=== PATIENT | female | born 1985 | race African-American/Black ===

== ENCOUNTER 2020-03-10 15:07 | Inpatient (IN) | payer OTHER, SELFPAY ==
[2020-03-10] VITALS (7 sets, daily range): BP systolic 83–134; BP diastolic 51–86; PULSE 51–100; RESP 14–24; TEMP 36.6–37.1; O2SAT 95–100; BMI 21.1
[2020-03-10 15:50] LABS: Basophils Percent Auto 0.3 % (0.2-1.2); Eosinophils Absolute Auto 0.1 K/mm3 (0-0.3); Eosinophils Percent Auto 0.4 % (0-4.4); Hematocrit 39.2 % (37.0-47.0); Immature Granulocyte Absolute 0.06 K/mm3 (0.00-0.031); Immature Granulocyte Percent A 0.4 % (0-0.5); Lymphocytes Absolute Auto 1.89 K/mm3 (0.9-3.2); Lymphocytes Percent Auto 13.1 % (18.3-44.2); Mean Corpuscular HGB Conc 33.2 g/dl (32-36); Mean Corpuscular Hemoglobin 30.4 pg (26-34); Mean Corpuscular Volume 91.6 fl (80-100); Mean Platelet Volume 10.5 fl (7.4-10.4); Monocytes Absolute Auto 0.7 K/mm3 (0.1-0.6); Neutrophils Absolute Auto 11.6 K/mm3 (1.3-6.7); Neutrophils Percent Auto 80.8 % (45.5-73.1); Platelet Count Result 232 k/mm3 (150-375); Red Blood Count 4.28 M/mm3 (4.2-5.4); Red Cell Distribution Width 12.8 % (11.5-14.5); White Blood Count 14.4 K/mm3 (4.5-10.0)
[2020-03-10] MEDS: FAMOTIDINE 20 MG/2 ML VIAL IV PUSH ×2 (15:51→21:31)
[2020-03-10] MEDS: LACTATED RINGERS 1,000 ML 999 ML IV CONT ×3 (15:51→18:19)
[2020-03-10] MEDS: LORazepam INJ (*CRX) 2 MG/ML VIAL 0.5 MG IV PUSH (15:51)
[2020-03-10] MEDS: METOCLOPRAMIDE HCL INJ 10 MG/2 ML VIAL IV PUSH (15:51)
[2020-03-10 15:58] LABS: INR 1.1; Prothrombin Time 13.5 Seconds (11.1-14.7)
[2020-03-10 15:59] LABS: Partial Thromboplastin Time 23.4 SECONDS (22.3-36.8)
[2020-03-10 16:03] LABS: Alanine Aminotransferase 23 U/L (4-35); Albumin Level 4.8 g/dL (3.5-5.1); Alkaline Phosphatase 73 U/L (38-126); Anion Gap 9 mmol/L (8-16); Aspartate Amino Transferase 32 U/L (14-36); Bilirubin,Total 2.2 mg/dL (0.2-1.3); Blood Urea Nitrogen 14 mg/dL (7-17); CRP < 0.5 mg/dL (<1.0); Calcium 10.1 mg/dL (8.4-10.2); Carbon Dioxide 25 mmol/L (22-30); Chloride 104 mmol/L (98-107); Estimated CRCL calculation 94 ml/min; Estimated Glomerular Filt Rate > 60; Glucose 133 mg/dL (65-105); Sodium 138 mmol/L (137-145)
[2020-03-10 16:05] LABS: Add Urine Microscopic? YES; Appearance Urine Cloudy (Clear); Bacteria Urine Trace /hpf; Bilirubin Urine Negative (Negative); Blood Urine 2+ (Negative); Color Urine Yellow (Yellow); Glucose Urine UA Negative (Negative); Ketones Urine Trace mg/dL (Negative); Leukocyte Esterase Ur 2+ LEU/UL (Negative); Mucus Urine Heavy /lpf; Nitrate Urine Negative (Negative); Protein Urine 2+ mg/dL (Negative); RBC Urine 21-50 /hpf (0-2); Renal Epithelial Cells Urine Rare /hpf (None Seen); Squamous Epithelial Cell Urine Many /hpf (Few); Urobilinogen Urine Negative mg/dL (<2.0); WBC Urine 21-30 /hpf
[2020-03-10 16:07] LABS: Specific Grav Ur 1.033 (1.001-1.035)
--- NOTE | 2020-03-10 16:10 | PC.NURSE ---
unable to draw pt called lab to draw blood cultures and lactic
--- NOTE | 2020-03-10 17:47 | ED.NAVMDI ---
HPI - Nausea/Vomiting/Diarrhea General Chief complaint: Nausea/Vomiting/Diarrhea <CONY Ojeda Last Filed: 03/10/20 18:38> Stated complaint: I have a virus and need fluids <CONY Ojeda Last Filed: 03/10/20 18:38> Time Seen by Provider: 03/10/20 15:21 <CONY Ojeda Last Filed: 03/10/20 18:38> Source: patient <CONY Ojeda Last Filed: 03/10/20 18:38> Mode of arrival: ambulatory <CONY Ojeda Last Filed: 03/10/20 18:38> Limitations: no limitations <CONY Ojeda Last Filed: 03/10/20 18:38> History of Present Illness HPI Narrative: Patient is a 35-year-old female who presents with nausea and vomiting and diarrhea has been present for the last couple of days went to [facility] yesterday had evaluation to include CAT scan was sent home with instructions for gastroenteritis and placed on Flagyl patient notes she has been vomiting continually since. Patient notes some mild aching pain of the abdomen and notes that she is unable to tolerate p.o. intake. Patient denies any vaginal or urinary complaints or URI symptoms and presents then an uncomfortable state but no distress patient was prescribed Zofran which has not been helped <CONY Ojeda Last Filed: 03/10/20 18:38> Related Data Home medications: Home Medications Medication Instructions Recorded Confirmed dicyclomine mg 03/10/20 metronidazole 03/10/20 ondansetron HCl 03/10/20 <CONY Ojeda Last Filed: 03/10/20 18:38> Allergies/Adverse reactions: Allergies Allergy/AdvReac Type Severity Reaction Status Date / Time No Known Allergies Allergy Verified 03/10/20 15:13 <CONY Ojeda Last Filed: 03/10/20 18:38> Review of Systems Review of Systems: All systems reviewed & are unremarkable except as noted in HPI and below <CONY Ojeda Last Filed: 03/10/20 18:38> [facility] Social History Social History: Social History (Updated 03/10/20 @ 17:48 by Reynaldo Herrera PA-C) Smoking status: Never smoker Gender identity (if verbalized by the patient): Female <Reynaldo Herrera PA-C - Last Filed: 03/10/20 18:38> Exam Narrative: Exam Narrative: GENERAL: ill-appearing, well-nourished, and in no acute distress. HEAD: Normocephalic, atraumatic. EYES: PERRLA and EOMI. ENT: Nares clear, no rhinorrhea or epistaxis. Mucous membranes dry. CHEST: Clear to auscultation. No respiratory distress. No wheezes rales or rhonchi HEART: Regular rate and rhythm. No murmur heard. Normal peripheral pulses. ABDOMEN: Soft, mild tenderness of the abdomen without rebound or guarding, nondistended EXTREMITIES: Normal range of motion. No edema. SKIN: Warm, dry, no rash. NEURO: No focal deficits. Alert and oriented x3. PSYCH: Normal mood and affect. <Reynaldo Herrera PA-C - Last Filed: 03/10/20 18:38> Course Course Emergency Course: Patient in the room presenting septic likely secondary to dehydration received to the records from [facility] showing colitis on the scan no other findings that were concerning patient had blood work and documentation also obtained patient is resting in the room at this time is been continually hydrated will be given 3 L in the emergency department will be admitted to the hospitalist service for intractable emesis and potentially dehydration and sepsis patient has had improvement in the emergency department but continues to have nausea. Patient notes that her COVID test was negative at [place] <Reynaldo Herrera PA-C - Last Filed: 03/10/20 18:38> FORENSIC SCIENTIST/PA Physician Supervision For this patient encounter, I reviewed the FORENSIC SCIENTIST or PA documentation, treatment plan, and medical decision making; and I had [id number] time with this patient. She is resting comfortably following medications and fluids. <nAuj Lu MD - Last Filed: 03/10/20 18:59> Consultations
[2020-03-10] MEDS: PROMETHAZINE HCL 25 MG/ML AMPUL 12.5 MG IV PUSH (18:19)
[2020-03-10 19:47] LABS: Reflex Lactic Acid Yes or No Add Lactic
[2020-03-10 20:38] LABS: Lactic Acid 1.2 mmol/L (0.7-2.1)
--- NOTE | 2020-03-10 20:44 | ADMGEN ---
This patient, El Amaya, was admitted to 3 [facility] [place] Surg Room 312-01. Patient/family oriented to hospital policies and general routines including ID bracelet, bed and alarms, visiting hours, pain management, procedures, bathroom and other care routines, personal items, smoking policy, room service/diet, and visiting hours. Valuables list has been completed. Information on how to activate the Rapid Response Team has been discussed. Patient/Family are encouraged to report perceived risks to care and to ask questions if they do not understand what they are told or what they should do.
[2020-03-10] MEDS: LACTATED RINGERS 1,000 ML 125 ML IV CONT (20:57)
[2020-03-10] MEDS: ONDANSETRON INJ 4 MG/2 ML VIAL IV PUSH (21:31)
--- NOTE | 2020-03-11 01:01 | PM.IMHP ---
H&P: HPI History of Present Illness Date/Time: 03/11/20 01:01 Chief complaint: Nausea vomiting and diarrhea with abdominal pain Narrative: El Amaya is a previously healthy 35 year old female who presented to the ER due to intractable nausea, vomiting and diarrhea. The patient had been evaluated at [facility] on 03/09/2020 due to nausea vomiting and diarrhea that started around 4:00 a.m.. Her symptoms initially started with watery diarrhea was nonbloody and not have any mucus. It was shortly there after followed by onset of vomiting. At [facility] [place] she had a CT of the abdomen pelvis performed which demonstrated flores colitis. The patient received IV fluids and was discharged home with a prescription for Flagyl, oral meclizine, dicyclomine and Zofran. She also had a prescription for Phenergan suppositories however the pharmacy did not have the medication available to be filled. She returned home and continued to have nausea and vomiting. She did not take any of the medications that had been prescribed because she could not keep them down. She subsequently presented to our facility around 3:00 p.m. for repeat evaluation for repeat evaluation. The patient denied having any fevers but has been having intermittent chills. She reports that her abdominal pain is actually in the epigastric region and is worse with vomiting. Her emesis consisted of clear or yellow color emesis. She has not had any hematemesis or coffee-ground emesis. Her diarrheal stools have been brown in color. On the 1st day symptoms she had numerous watery stools. On the when she presented to the ER she only had 2 or 3 watery stools. At this time the patient is still intermittently dry heaving having small amounts of yellow emesis. She denies any recent ill contacts. She does work in catering. She has not had any recent travel. Her 2 sons who live in the home with her have not been ill. She has not had any known COVID-19 exposures. The patient's nausea vomiting persisted despite administration of IV Phenergan, Zofran, Reglan, Ativan and famotidine given in the ER. She also received 3 L of lactated Ringer's in the ER. the patient is restless and states that she just wants to be able to sleep. She is tired of feeling like she has to throw up all the time. Review of Systems Review of Systems: Narrative: 12 systems were reviewed with pertinent positives and negatives per HPI. Except as documented in the HPI, all other systems were reviewed and are negative. [facility] Past Medical History Medical History (Updated 03/11/20 @ 01:40 by Milagros Banuelos DO) No significant past medical history Surgical History Surgical History (Updated 03/11/20 @ 01:49 by Milagros Banuelos DO) History of dilation and curettage (~2012) due to miscarriage History of tympanoplasty of right ear November 2018 Family History Family History (Updated 03/11/20 @ 01:41 by Milagros Banuelos DO) Mother GERD (gastroesophageal reflux disease) Father Gunshot wound Social History Social History (Updated 03/11/20 @ 01:45 by Milagros Banuelos DO) Social History: The patient lives with her 15 and 19-year-old son. She works in [employer] Primary care physician: Dr. Minal Lima Smoking status: Never smoker Alcohol intake: never Substance use: never Substance use type: does not use Gender identity (if verbalized by the patient): Female Sexual Orientation (if Verbalized by the Patient): Straight or Heterosexual Spiritual care concerns: No Meds Home Medications and Allergies Home Medications Medication Instructions Recorded Confirmed Type dicyclomine 20 mg PO TID 03/10/20 03/10/20 History meclizine 25 mg PO TID PRN 03/10/20 03/10/20 History metronidazole 500 mg PO BID 03/10/20 03/10/20 History ondansetron HCl 4 mg PO BID 03/10/20 03/10/20 History Allergies Allergy/AdvReac Type Severity Reaction Status Date / Ti
[2020-03-11] MEDS: PROMETHAZINE HCL 25 MG/ML AMPUL IM ×2 (01:49→08:06)
[2020-03-11 06:00] VITALS: BP 121/62; PULSE 84; RESP 16; TEMP 37.3; O2SAT 100
[2020-03-11 06:11] LABS: Basophils Percent Auto 0.3 % (0.2-1.2); Eosinophils Percent Auto 0.1 % (0-4.4); Hematocrit 34.9 % (37.0-47.0); Hemoglobin 11.4 g/dL (12.0-15.0); Immature Granulocyte Absolute 0.04 K/mm3 (0.00-0.031); Immature Granulocyte Percent A 0.4 % (0-0.5); Lymphocytes Absolute Auto 2.06 K/mm3 (0.9-3.2); Lymphocytes Percent Auto 19.2 % (18.3-44.2); Mean Corpuscular HGB Conc 32.7 g/dl (32-36); Mean Corpuscular Hemoglobin 29.5 pg (26-34); Mean Corpuscular Volume 90.4 fl (80-100); Monocytes Absolute Auto 0.8 K/mm3 (0.1-0.6); Monocytes Percent Auto 7.4 % (2.6-8.5); Neutrophils Absolute Auto 7.8 K/mm3 (1.3-6.7); Neutrophils Percent Auto 72.6 % (45.5-73.1); Platelet Count Result 188 k/mm3 (150-375); Red Blood Count 3.86 M/mm3 (4.2-5.4); Red Cell Distribution Width 12.3 % (11.5-14.5); White Blood Count 10.7 K/mm3 (4.5-10.0)
[2020-03-11 06:40] LABS: Alanine Aminotransferase 20 U/L (4-35); Alkaline Phosphatase 53 U/L (38-126); Anion Gap 6 mmol/L (8-16); Aspartate Amino Transferase 25 U/L (14-36); Bilirubin,Total 1.6 mg/dL (0.2-1.3); Calcium 9.3 mg/dL (8.4-10.2); Carbon Dioxide 25 mmol/L (22-30); Chloride 105 mmol/L (98-107); Estimated Glomerular Filt Rate > 60; Glucose 104 mg/dL (65-105); Potassium 3.3 mmol/L (3.4-5.0); Sodium 136 mmol/L (137-145)
[2020-03-11 06:43] LABS: Magnesium 1.7 mg/dL (1.6-2.3)
[2020-03-11] MEDS: FAMOTIDINE 20 MG/2 ML VIAL IV PUSH ×2 (08:06→20:17)
[2020-03-11] MEDS: ENOXAPARIN 40 MG/0.4 ML SYRINGE SUB-Q (08:06)
[2020-03-11 10:00] VITALS: BP 124/85; PULSE 96; RESP 16; TEMP 36.7; O2SAT 100
--- NOTE | 2020-03-11 11:24 | WPDGICN ---
Assessment and Plan Assessment and plan (1) Intractable nausea and vomiting: Code(s): R11.2 - Nausea with vomiting, unspecified Status: Acute Assessment and Plan: continue with medical care, antiemetics and fluids cl diet for now (2) Abdominal pain: Code(s): R10.9 - Unspecified abdominal pain Status: Acute Assessment and Plan: probably gastroenteritis supportive care started on abx continue to monitor lactic acid level now normal (3) Colitis: Code(s): K52.9 - Noninfective gastroenteritis and colitis, unspecified Status: Acute Assessment and Plan: on abx, stool samples ordered (4) Dehydration: Code(s): E86.0 - Dehydration Status: Acute Assessment and Plan: improved (5) Hypokalemia: Code(s): E87.6 - Hypokalemia Status: Acute Assessment and Plan: treated (6) Bilirubinemia: Code(s): E80.6 - Other disorders of bilirubin metabolism Status: Acute Assessment and Plan: will check indirect bili, probably kishan's (noted that has been high previously) GI Consult Note Consult date/time: 03/11/20 11:24 Reason for consult: n/v, colitis HPI: El Amaya is a 35 year old female who came to the hospital with 3 days of N/V and abdominal pain. She went to [facility] on 03/09/2020 when she started having symptoms of intractable N/V, also first day had several times loose stool consistent watery diarrhea, nonbloody. They did a CT of the abdomen pelvis which showed flores colitis. Treated medically and sent home but she could not keep meds down. She is not having diarrhea now but still with N/V, also epigastric discomfort therefore she came here. No fever or sick contacts. Never had anything like this. Had WBC 14k, k 3, lactic 3 (normal now), bili 1.6 (but high previously ? Kishan) with other normal liver enzymes. She says that does not use marijuana and only tried once previously (urine tox months ago was positive). Review of Systems Constitutional: Constitutional: Reports chills and Denies headache(s) Eyes: Eyes: Denies blurry vision ENT: Reports Normal hearing present, Denies headache(s) and Denies neck pain Cardiovascular: Cardiovascular: Denies chest pain and Denies dyspnea Respiratory: Respiratory: Denies dyspnea Gastrointestinal: Gastrointestinal: Reports abdominal pain, Denies hematochezia, Reports diarrhea, Reports nausea and Reports vomiting Genitourinary: Genitourinary: Denies dysuria Musculoskeletal: Musculoskeletal: Denies neck pain Integumentary/Breasts: Skin/Breast: Denies dry skin Neurologic: Reports Normal hearing present, Denies headache(s) and Denies weakness Psychiatric: Psychiatric: Denies anxiety Endocrine: Endocrine: Denies change in body appearance Hematologic/Lymphatic: Hematologic/Lymphatic: Denies easy bleeding Allergic/Immunologic: Allergic/Immunologic: Denies urticaria PMFSH Past Medical History Medical History (Updated 03/11/20 @ 11:30 by Edison Sanchez MD) Abdominal pain Bilirubinemia No significant past medical history Surgical History Surgical History (Updated 03/11/20 @ 01:49 by Milagros Banuelos DO) History of dilation and curettage (~2012) due to miscarriage History of tympanoplasty of right ear November 2018 Family History Family History (Updated 03/11/20 @ 01:41 by Milagros Banuelos DO) Mother GERD (gastroesophageal reflux disease) Father Gunshot wound Social History Social History (Updated 03/11/20 @ 01:45 by Milagros Banuelos DO) Social History: The patient lives with her 15 and 19-year-old son. She works in catering. Primary care physician: Dr. Minal Lima Smoking status: Never smoker Alcohol intake: never Substance use: never Substance use type: does not use Gender identity (if verbalized by the patient): Female Sexual Orientation (if Verbalized by the Patient): Str
--- NOTE | 2020-03-11 11:48 | PM.IMPN ---
Progress Note: A&P Assessment and Plan (1) Colitis: Code(s): K52.9 - Noninfective gastroenteritis and colitis, unspecified Status: Acute Assessment and Plan: CT from [facility] was reviewed and demonstrated pancolitis. Either infectious or inflammatory. The patient denies any chronic abdominal pain, mucousy stools, bloody stools or evidence of history of prior inflammatory bowel symptoms, history of Crohn's, IBS or colitis. Her story is more consistent with acute infectious colitis whether viral or bacterial. Will send stool cultures, as well as C diff, Cryptosporidium and Giardia. Patient has not had any more diarrhea since prior to arrival. Will continue antibiotic therapy with Zosyn, monitoring diarrhea and abdominal symptoms. GI will be consulted for further evaluation and recommendations to if the patient continues to have issues with this she is already set up with a provider who can possibly perform further testing as outpatient (2) Lactic acidosis: Code(s): E87.2 - Acidosis Status: Acute Assessment and Plan: Patient has lactic acidosis on arrival could be secondary to acute dehydration versus underlying gastroenteritis which could be infectious. Otherwise she has remained afebrile, non tachycardic, normal blood pressure, normal oxygenation and respirations. She does leukocytosis, but this could again be secondary to nausea and vomiting and dehydration. Blood cultures are pending at this time. She is on IV antibiotics for pancolitis and gastroenteritis. Continue monitoring patient's vitals in symptoms. (3) Hypokalemia: Code(s): E87.6 - Hypokalemia Status: Acute Assessment and Plan: Potassium this morning was 3.3, but her IV potassium is still running from early this morning. Will recheck magnesium and potassium after K rider finishes to see if she needs more supplementation. Continue monitoring. (4) Dehydration: Code(s): E86.0 - Dehydration Status: Acute Assessment and Plan: Appears better hydrated after IV fluids since arrival. Will decrease her isotonic fluids to 75 cc an hour and continue monitoring her oral intake Continue monitoring. Check renal function electrolytes in the morning. (5) Intractable nausea and vomiting: Code(s): R11.2 - Nausea with vomiting, unspecified Status: Acute Assessment and Plan: Continues to have nausea when trying to eat clear liquid diet. Told her to take a time with eating and slowly advance. Continue IV Pepcid, Zofran and p.r.n. Phenergan 25 mg IM q.4 hours for intractable symptoms. Continue monitoring patient's symptoms. (6) Bilirubinemia: Code(s): E80.6 - Other disorders of bilirubin metabolism Status: Acute Assessment and Plan: She had elevated total bilirubin on arrival. It appears this has been elevated in the past during her ER/hospitalizations. GI ordered indirect bilirubin to be checked in the morning common believes could be related to Gilbert's syndrome Continue monitoring. (7) Abnormal urinalysis: Code(s): R82.90 - Unspecified abnormal findings in urine Status: Acute Assessment and Plan: Urinalysis was slightly abnormal, could be secondary to dehydration verses underlying UTI. Urine culture is currently pending. Patient is on broad-spectrum antibiotics at this time which would cover for most urinary tract infections she is to have one Will continue monitoring patient's urine symptoms and continue IV fluids at this time. Time Spent With Patient Time with patient: 25 - 35 minutes Subjec
[2020-03-11 12:09] LABS: Potassium 3.5 mmol/L (3.4-5.0)
[2020-03-11 13:05] LABS: Magnesium 1.8 mg/dL (1.6-2.3)
[2020-03-11 14:00] VITALS: BP 130/68; PULSE 50; RESP 16; TEMP 36.8; O2SAT 100
[2020-03-11 18:00] VITALS: BP 145/86; PULSE 50; RESP 16; TEMP 36.8; O2SAT 100
[2020-03-11] MEDS: LACTATED RINGERS 1,000 ML 75 ML IV CONT (20:08)
[2020-03-11] MEDS: ONDANSETRON INJ 4 MG/2 ML VIAL IV PUSH (20:12)
[2020-03-11 22:00] VITALS: BP 148/50; PULSE 48; RESP 16; TEMP 37.7; O2SAT 100
[2020-03-12 02:00] VITALS: BP 139/53; PULSE 56; RESP 16; TEMP 37.6; O2SAT 100
[2020-03-12] MEDS: ONDANSETRON INJ 4 MG/2 ML VIAL IV PUSH ×3 (03:25→17:42)
[2020-03-12 06:00] VITALS: BP 148/69; PULSE 49; RESP 16; TEMP 37.3; O2SAT 100
[2020-03-12 06:00] LABS: Hematocrit 33.8 % (37.0-47.0); Mean Corpuscular HGB Conc 32.5 g/dl (32-36); Mean Corpuscular Hemoglobin 29.9 pg (26-34); Mean Corpuscular Volume 91.8 fl (80-100); Mean Platelet Volume 11.1 fl (7.4-10.4); Platelet Count Result 179 k/mm3 (150-375); Red Blood Count 3.68 M/mm3 (4.2-5.4); Red Cell Distribution Width 12.3 % (11.5-14.5); White Blood Count 9.6 K/mm3 (4.5-10.0)
[2020-03-12 06:16] LABS: Alanine Aminotransferase 21 U/L (4-35); Albumin Level 3.6 g/dL (3.5-5.1); Alkaline Phosphatase 45 U/L (38-126); Anion Gap 6 mmol/L (8-16); Aspartate Amino Transferase 30 U/L (14-36); Bilirubin Indirect 2.3 mg/dL (0-1.1); Bilirubin,Total 2.3 mg/dL (0.2-1.3); Blood Urea Nitrogen 11 mg/dL (7-17); Carbon Dioxide 25 mmol/L (22-30); Chloride 104 mmol/L (98-107); Estimated CRCL calculation 83 ml/min; Estimated Glomerular Filt Rate > 60; Glucose 94 mg/dL (65-105); Magnesium 1.7 mg/dL (1.6-2.3); Potassium 3.3 mmol/L (3.4-5.0); Sodium 135 mmol/L (137-145)
[2020-03-12] MEDS: POTASSIUM CHLORIDE 20 MEQ TABLET 40 MEQ PO (08:48)
[2020-03-12] MEDS: FAMOTIDINE 20 MG/2 ML VIAL IV PUSH ×2 (08:49→21:26)
[2020-03-12] MEDS: ENOXAPARIN 40 MG/0.4 ML SYRINGE SUB-Q (08:49)
[2020-03-12] MEDS: LACTATED RINGERS 1,000 ML 75 ML IV CONT ×2 (09:18→21:26)
--- NOTE | 2020-03-12 10:12 | PM.IMPN ---
Progress Note: A&P Assessment and Plan (1) Colitis: Code(s): K52.9 - Noninfective gastroenteritis and colitis, unspecified Status: Acute Assessment and Plan: CT from [facility] was reviewed and demonstrated pancolitis. Either infectious or inflammatory. The patient denies any chronic abdominal pain, mucousy stools, bloody stools or evidence of history of prior inflammatory bowel symptoms, history of Crohn's, IBS or colitis. Her story is more consistent with acute infectious colitis whether viral or bacterial. Will send stool cultures, as well as C diff, Cryptosporidium and Giardia. Patient has not had any more diarrhea since prior to arrival, so stool cultures were never sent. Will continue antibiotic therapy with Zosyn, monitoring diarrhea and abdominal symptoms. GI will be consulted for further evaluation and recommendations to if the patient continues to have issues with this she is already set up with a provider who can possibly perform further testing as outpatient Continue monitoring. GI recommendations are appreciated. (2) Lactic acidosis: Code(s): E87.2 - Acidosis Status: Acute Assessment and Plan: Patient has lactic acidosis on arrival could be secondary to acute dehydration versus underlying gastroenteritis which could be infectious. Otherwise she has remained afebrile, non tachycardic, normal blood pressure, normal oxygenation and respirations. Leukocytosis normalized today. Blood cultures are negative at this time. She is on IV antibiotics for pancolitis and gastroenteritis. Continue monitoring patient's vitals in symptoms. (3) Hypokalemia: Code(s): E87.6 - Hypokalemia Status: Acute Assessment and Plan: Potassium this morning was 3.3. Will supplement. Will recheck magnesium and potassium in the morning. Continue monitoring. (4) Dehydration: Code(s): E86.0 - Dehydration Status: Acute Assessment and Plan: Appears better hydrated after IV fluids since arrival. Will decrease her isotonic fluids to 75 cc an hour and continue monitoring her oral intake Continue monitoring. Check renal function electrolytes in the morning. (5) Intractable nausea and vomiting: Code(s): R11.2 - Nausea with vomiting, unspecified Status: Acute Assessment and Plan: Continues to have nausea when trying to eat clear liquid diet. Told her to take a time with eating and slowly advance. Continue IV Pepcid, Zofran and p.r.n. Phenergan 25 mg IM q.4 hours for intractable symptoms. Continue monitoring patient's symptoms. (6) Bilirubinemia: Code(s): E80.6 - Other disorders of bilirubin metabolism Status: Acute Assessment and Plan: She had elevated total bilirubin on arrival. It appears this has been elevated in the past during her ER/hospitalizations. Normal direct bili, elevated Indirect suggesting Gilbert's syndrome Continue monitoring. (7) Abnormal urinalysis: Code(s): R82.90 - Unspecified abnormal findings in urine Status: Acute Assessment and Plan: Urinalysis was slightly abnormal, could be secondary to dehydration verses underlying UTI. Urine culture is currently pending. UA showing Group B strep. She denies any urinary symptoms at this time. Zosyn will be continued. Will continue monitoring patient's urine symptoms and continue IV fluids at this time. Time Spent With Patient Time with patient: 25 - 35 minutes Subjective Date/time seen: 03/12/20 10:12 Interval history: Date of service 03/12/2020: The patient has not been able to eat much of h
[2020-03-12 10:17] LABS: Blood Urea Nitrogen 11 mg/dL (7-17); Estimated CRCL calculation 107 ml/min
[2020-03-12 14:00] VITALS: BP 153/82; PULSE 92; RESP 18; TEMP 37.3; O2SAT 100
--- NOTE | 2020-03-12 14:27 | WPDGIPROGNO ---
Progress Note: A&P Assessment and Plan (1) Colitis: Code(s): K52.9 - Noninfective gastroenteritis and colitis, unspecified Status: Acute Assessment and Plan: pancolitis, continue with supportive care and abx wbc normal today still symptomatic stool samples pending (2) Dehydration: Code(s): E86.0 - Dehydration Status: Acute Assessment and Plan: iv fluids and supportive care (3) Hypokalemia: Code(s): E87.6 - Hypokalemia Status: Acute (4) Intractable nausea and vomiting: Code(s): R11.2 - Nausea with vomiting, unspecified Status: Acute Assessment and Plan: antiemetics prn (5) Bilirubinemia: Code(s): E80.6 - Other disorders of bilirubin metabolism Status: Acute Assessment and Plan: mostly indirect c/w Gilbert, no further work up needed Subjective Date/time seen: 03/12/20 14:27 Interval history: still nauseous and diarrhea Review of Systems Review of Systems: All systems reviewed & are unremarkable except as noted in HPI and below Exam Const: General: comfortable and no acute distress HENMT: General nose exam: Normal nares present Eyes: General: appearance normal, both eyes and all related structures Neck: Neck: no JVD Resp: Auscultation: clear to auscultation bilaterally Cardio: Rate: regular rate Rhythm: regular rhythm GI: Inspection: non-distended GI Palp: Yes Soft to palpation, No Firmness to palpation present (GI) and Yes Tenderness to palpation present (GI) (less tender today, no rebound) Auscultation: normal bowel sounds Skin: General skin exam: normal color Neuro: General: gait normal Speech: normal speech Extrem: General: normal to inspection Psych: Mental Status: mental status grossly normal Objective Data Vital Signs Vital Signs: Vital Signs - 24 hr 03/11/20 18:00 03/11/20 22:00 03/12/20 02:00 Temperature 98.3 F 99.8 F H 99.6 F Pulse Rate 50 L 48 L 56 L Respiratory Rate 16 16 16 Blood Pressure 145/86 H 148/50 H 139/53 L Pulse Oximetry 100 100 100 03/12/20 06:00 Temperature 99.2 F Pulse Rate 49 L Respiratory Rate 16 Blood Pressure 148/69 H Pulse Oximetry 100 Intake/Output Intake/Output: Intake & Output 03/09/20 03/10/20 03/11/20 03/12/20 23:59 23:59 23:59 23:59 Intake Total 3200 2340 1440 Output Total 700 700 Balance 3200 1640 740 Meds/Results Medications: Active Medications Generic Name Dose Route Start Last Admin Trade Name Freq PRN Reason Stop Dose Admin Enoxaparin Sodium 40 mg 03/11/20 09:00 03/12/20 08:49 Lovenox SUB-Q 40 mg DAILY NUHA Administration Famotidine 20 mg 03/10/20 21:00 03/12/20 08:49 Pepcid Iv IV PUSH 20 mg Q12HR NUHA Administration Piperacillin/Tazobactam/Dextrose 3.375 gm in 50 mls @ 100 mls/hr 03/11/20 00:00 03/12/20 12:45 Zosyn 3.375 Gm/D5w 50ml Pm IVPB 100 mls/hr Q6H NUHA Administration Lactated Ringer's 1,000 mls @ 75 mls/hr 03/10/20 18:40 03/12/20 09:18 Lr - Lactated Ringers Iv IV CONT 75 mls/hr .[id number] NUHA Administration Ondansetron HCl 4 mg 03/10/20 18:39 03/12/20 08:52 Zofran Inj IV PUSH 4 mg Q4H PRN Administration Nausea Promethazine HCl 25 mg 03/11/20 01:30 03/11/20 08:06 Phenergan Inj IM 25 mg Q4H PRN Administration intractable nausea/vomiting Labs Labs: Laboratory Results - last 24 hr 03/11/20 03/12/20 03/12/20 05:36 05:34 05:34 WBC 9.6 RBC 3.68 L Hgb 11.0 L Hct 33.8 L MCV 91.8 MCH 29.9 MCHC 32.5 RDW 12.3 Plt Count 179 MPV 11.1 H Sodium 135 L Potassium 3.3 L Chloride 104 Carbon Dioxide 25 Anion Gap 6 L BUN 11 11 Creatinine 0.60 L 0.80 Estim Creat Clear Calc 107 83 Estimated GFR > 60 Glucose 94 Calcium 9.0 Magnesium 1.7 Total Bilirubin 2.3 H Direct Bilirubin 0.0 Indirect Bilirubin 2.3 H AST 30 ALT 21 Alkaline Phosphatase 45 Total Pr
[2020-03-12 15:45] VITALS: TEMP 36.8
[2020-03-12 22:00] VITALS: BP 129/81; PULSE 47; RESP 16; TEMP 37.4; O2SAT 100
[2020-03-13 06:00] VITALS: BP 117/51; PULSE 49; RESP 16; O2SAT 100
[2020-03-13 06:10] LABS: Hematocrit 34.5 % (37.0-47.0); Hemoglobin 11.3 g/dL (12.0-15.0); Mean Corpuscular HGB Conc 32.8 g/dl (32-36); Mean Corpuscular Hemoglobin 29.2 pg (26-34); Mean Corpuscular Volume 89.1 fl (80-100); Mean Platelet Volume 10.9 fl (7.4-10.4); Platelet Count Result 191 k/mm3 (150-375); Red Blood Count 3.87 M/mm3 (4.2-5.4); White Blood Count 8.5 K/mm3 (4.5-10.0)
[2020-03-13 06:23] LABS: Anion Gap 7 mmol/L (8-16); Blood Urea Nitrogen 9 mg/dL (7-17); Carbon Dioxide 24 mmol/L (22-30); Chloride 105 mmol/L (98-107); Estimated CRCL calculation 83 ml/min; Estimated Glomerular Filt Rate > 60; Glucose 89 mg/dL (65-105); Potassium 3.5 mmol/L (3.4-5.0); Sodium 136 mmol/L (137-145)
[2020-03-13] MEDS: FAMOTIDINE 20 MG/2 ML VIAL IV PUSH ×2 (08:14→20:20)
[2020-03-13] MEDS: ENOXAPARIN 40 MG/0.4 ML SYRINGE SUB-Q (08:14)
[2020-03-13] MEDS: PROMETHAZINE HCL 25 MG/ML AMPUL IM (09:05)
[2020-03-13 10:41] VITALS: BP 130/66; PULSE 51; RESP 20; TEMP 36.8; O2SAT 100
--- NOTE | 2020-03-13 11:18 | PC.NURSE ---
904 pt requetsed phenergan states she attempted to drink some juice and is now has nausea and had emesis.phergan 12.5mg iv per dose instructions given.
--- NOTE | 2020-03-13 12:32 | PM.IMPN ---
Progress Note: A&P Assessment and Plan (1) Colitis: Code(s): K52.9 - Noninfective gastroenteritis and colitis, unspecified Status: Acute Assessment and Plan: CT from [facility] demonstrated pancolitis. Differential includes infectious vs inflammatory etiology. The pt denies any chronic abdominal pain, mucous stools, bloody stools or evidence of history of prior inflammatory bowel symptoms, history of Crohn's, IBS or colitis. Will check ESR and CRP. Clinical presentation suggests acute infectious colitis. Stool cultures were ordered but could not be performed because she did not have any further bowel movements. She reports one episode of diarrhea yesterday. Will try to order stool cultures again. Continue empiric IV zosyn. GI was consulted and input is appreciated. Continue supportive care and advance diet as tolerated. Discussed with GI and will plan for EGD tomorrow given epigastric tenderness and inability to tolerate PO intake. (2) Lactic acidosis: Code(s): E87.2 - Acidosis Status: Resolved Assessment and Plan: Lactic acidosis was present on arrival and may have been secondary to acute dehydration versus colitis. Lactic acidosis and leukocytosis have resolved. She remains on treatment for colitis. (3) Hypokalemia: Code(s): E87.6 - Hypokalemia Status: Resolved Assessment and Plan: Potassium was low and supplemented. Potassium and magnesium have normalized. Continue to monitor. (4) Dehydration: Code(s): E86.0 - Dehydration Status: Acute Assessment and Plan: Appears better hydrated after IV fluids since arrival. Continue IV fluids since PO intake is poor. Switch to D5/0.45% saline since blood sugars are on the low end of normal. (5) Intractable nausea and vomiting: Code(s): R11.2 - Nausea with vomiting, unspecified Status: Acute Assessment and Plan: Pt reports persistent nausea and cannot tolerate PO intake. Continue IV Pepcid, Zofran and p.r.n. Phenergan 25 mg IM q.4 hours for intractable symptoms. Appreciate GI input. (6) Bilirubinemia: Code(s): E80.6 - Other disorders of bilirubin metabolism Status: Acute Assessment and Plan: Total and indirect bilirubin are elevated suggesting Gilbert's syndrome. Direct bilirubin is 0. Appreciate GI input. (7) Abnormal urinalysis: Code(s): R82.90 - Unspecified abnormal findings in urine Status: Acute Assessment and Plan: Urine culture demonstrated Group B strep. She is asymptomatic. Zosyn will be continued for empiric treatment of colitis. (8) Hypoglycemia: Code(s): E16.2 - Hypoglycemia, unspecified Status: Acute Assessment and Plan: She reported tingling in her hands and feet with lightheadedness. Blood sugar was low at 76. I have added hypoglycemia protocol and q6 hr glucose monitoring since her PO intake is very poor. I will also order vitamin B12, folate, and vitamin D levels as well but I suspect that this is due to hypoglycemia. Subjective Date/time seen: 03/13/20 12:32 Mrs. Amaya is a 35 y.o. female who is seen in follow-up for pancolitis. She reports one loose stool yesterday. She is still nauseous and unable to keep anything PO down. She denies abdominal pain. She reports some lightheadedness and numbness/tingling in her hands and feet and blood sugar was found to be low. Review of Systems Review of Systems: All systems reviewed & are unremarkable except as noted in HPI and below Exam Narrative: Exam Narrative: General: Pleasant, well-developed, thin 35 y.o. female lying supine in bed in no acute distress. HEENET: Normocephalic and atraumatic. Conjunctivae without injection or exudate. PERRL. EOMI. Oral mucosa moist. Neck: Supple without lymphadenopathy or masses. Cardiac: Regular rate and rhythm. S1 and S2 normal. Lungs: Lungs clear to auscultati
[2020-03-13] MEDS: DEXTROSE 5%/0.9% SOD CHL 1,000 ML 75 ML IV CONT (13:02)
[2020-03-13 14:00] VITALS: BP 159/79; PULSE 60; RESP 20; TEMP 36.9; O2SAT 100
--- NOTE | 2020-03-13 15:34 | WPDGIPROGNO ---
Progress Note: A&P Assessment and Plan (1) Intractable nausea and vomiting: Code(s): R11.2 - Nausea with vomiting, unspecified Status: Acute Assessment and Plan: antiemetics prn will assess with egd, assess for ulcers, esophagitis, etc consider bx (2) Colitis: Code(s): K52.9 - Noninfective gastroenteritis and colitis, unspecified Status: Acute Assessment and Plan: pancolitis, continue with supportive care and abx leukocytosis resolved but still symptomatic stool samples pending (3) Dehydration: Code(s): E86.0 - Dehydration Status: Acute Assessment and Plan: iv fluids and supportive care (4) Hypokalemia: Code(s): E87.6 - Hypokalemia Status: Resolved Assessment and Plan: monitor and replacement (5) Bilirubinemia: Code(s): E80.6 - Other disorders of bilirubin metabolism Status: Acute Assessment and Plan: mostly indirect c/w Gilbert, no further work up needed Subjective Date/time seen: 03/13/20 15:34 Interval history: still with nausea, epigastric pain and diarrhea. Review of Systems Review of Systems: All systems reviewed & are unremarkable except as noted in HPI and below Exam Const: General: comfortable and no acute distress HENMT: General nose exam: Normal nares present Eyes: General: appearance normal, both eyes and all related structures Neck: Neck: no JVD Resp: Auscultation: clear to auscultation bilaterally Cardio: Rate: regular rate Rhythm: regular rhythm GI: Inspection: non-distended GI Palp: Yes Soft to palpation, No Firmness to palpation present (GI) and Yes Tenderness to palpation present (GI) (excelsior machine tender in epigastric, no rebound) Auscultation: normal bowel sounds Skin: General skin exam: normal color Neuro: General: gait normal Speech: normal speech Extrem: General: normal to inspection Psych: Mental Status: mental status grossly normal Objective Data Vital Signs Vital Signs: Vital Signs - 24 hr 03/12/20 15:45 03/12/20 22:00 03/13/20 06:00 Temperature 98.3 F 99.3 F Pulse Rate 47 L 49 L Respiratory Rate 16 16 Blood Pressure 129/81 117/51 L Pulse Oximetry 100 100 03/13/20 10:41 Temperature 98.2 F Pulse Rate 51 L Respiratory Rate 20 Blood Pressure 130/66 Pulse Oximetry 100 Intake/Output Intake/Output: Intake & Output 03/10/20 03/11/20 03/12/20 03/13/20 23:59 23:59 23:59 23:59 Intake Total 3200 2340 3410 841 Output Total 700 1700 700 Balance 3200 1640 1710 141 Meds/Results Medications: Active Medications Generic Name Dose Route Start Last Admin Trade Name Freq PRN Reason Stop Dose Admin Dextrose 12.5 gm 03/13/20 12:31 Dextrose 50% Syringe IV PUSH PRN PRN Hypoglycemia Protocol Enoxaparin Sodium 40 mg 03/11/20 09:00 03/13/20 08:14 Lovenox SUB-Q 40 mg DAILY NUHA Administration Famotidine 20 mg 03/10/20 21:00 03/13/20 08:14 Pepcid Iv IV PUSH 20 mg Q12HR NUHA Administration Glucagon 1 mg 03/13/20 12:31 Glucagon For Inj IM PRN PRN Hypoglycemia Protocol Glucose 15 gm 03/13/20 12:31 Glutose 15 PO PRN PRN Hypoglycemia Protocol Piperacillin/Tazobactam/Dextrose 3.375 gm in 50 mls @ 100 mls/hr 03/11/20 00:00 03/13/20 12:25 Zosyn 3.375 Gm/D5w 50ml Pm IVPB 100 mls/hr Q6H NUHA Infusion Dextrose 1,000 mls @ 100 mls/hr 03/13/20 12:31 Dextrose 5% 1,000 Ml IVPB PRN PRN Hypoglycemia Protocol Dextrose/Sodium Chloride 1,000 mls @ 75 mls/hr 03/13/20 12:45 03/13/20 13:02 Dextrose 5% Sodium Chloride 0.9% IV CONT 75 mls/hr .[id number] NUHA Administration Ondansetron HCl 4 mg 03/10/20 18:39 03/12/20 17:42 Zofran Inj IV PUSH 4 mg Q4H PRN Administration Nausea Promethazine HCl 25 mg 03/11/20 01:30 03/13/20 09:05 Phenergan Inj IM 12.5 mg Q4H PRN Administration intractable nausea/vomiting Labs Labs: Leticia
[2020-03-13 22:00] VITALS: BP 133/70; PULSE 49; RESP 16; TEMP 37.6; O2SAT 100
[2020-03-13] MEDS: ONDANSETRON INJ 4 MG/2 ML VIAL IV PUSH (23:57)
[2020-03-14] VITALS (9 sets, daily range): BP systolic 98–144; BP diastolic 50–75; PULSE 45–54; RESP 16–24; TEMP 36.6–37.5; O2SAT 100
[2020-03-14] MEDS: PROMETHAZINE HCL 25 MG/ML AMPUL IM (00:15)
[2020-03-14 02:25] LABS: Glucose Point of Care 107 (65-105)
[2020-03-14] MEDS: DEXTROSE 5%/0.9% SOD CHL 1,000 ML 75 ML IV CONT (04:12)
[2020-03-14 05:35] LABS: Basophils Percent Auto 0.6 % (0.2-1.2); Eosinophils Absolute Auto 0.2 K/mm3 (0-0.3); Eosinophils Percent Auto 2.3 % (0-4.4); Hematocrit 36.1 % (37.0-47.0); Hemoglobin 11.9 g/dL (12.0-15.0); Immature Granulocyte Absolute 0.04 K/mm3 (0.00-0.031); Immature Granulocyte Percent A 0.6 % (0-0.5); Lymphocytes Absolute Auto 2.24 K/mm3 (0.9-3.2); Lymphocytes Percent Auto 32.7 % (18.3-44.2); Mean Corpuscular Hemoglobin 29.9 pg (26-34); Mean Corpuscular Volume 90.7 fl (80-100); Mean Platelet Volume 10.6 fl (7.4-10.4); Monocytes Absolute Auto 0.5 K/mm3 (0.1-0.6); Monocytes Percent Auto 7.7 % (2.6-8.5); Neutrophils Absolute Auto 3.9 K/mm3 (1.3-6.7); Neutrophils Percent Auto 56.1 % (45.5-73.1); Platelet Count Result 191 k/mm3 (150-375); Red Blood Count 3.98 M/mm3 (4.2-5.4); Red Cell Distribution Width 11.9 % (11.5-14.5); White Blood Count 6.9 K/mm3 (4.5-10.0)
[2020-03-14 05:53] LABS: Anion Gap 5 mmol/L (8-16); Blood Urea Nitrogen 8 mg/dL (7-17); CRP < 0.5 mg/dL (<1.0); Carbon Dioxide 25 mmol/L (22-30); Chloride 106 mmol/L (98-107); Estimated CRCL calculation 83 ml/min; Estimated Glomerular Filt Rate > 60; Glucose 101 mg/dL (65-105); Potassium 3.3 mmol/L (3.4-5.0); Sodium 136 mmol/L (137-145)
[2020-03-14 06:25] LABS: Erythrocyte Sedimentation Rate 15 mm/hr (0-20)
[2020-03-14 08:01] LABS: Folic Acid 13.6 ng/mL (2.76->20)
[2020-03-14 08:23] LABS: Glucose Point of Care 96 (65-105)
[2020-03-14] MEDS: LACTATED RINGERS 1,000 ML 150 ML IV CONT (08:53)
--- NOTE | 2020-03-14 08:59 | WPDANESEPPF ---
Anes - Initial Pre Proc Eval Procedure: Operation Date: 03/14/20 09:30 Proposed Procedures p Esophagogastroduodenoscopy - Edison Sanchez MD Date/Time: 03/14/20 08:59 Surgeon: Suzanne Kelley PA-C Pre Op Diagnosis: Nausea vomiting and diarrhea with abdominal pain Patient Data Age: 35 Gender: F Height: 5 ft 7 in Weight: 61.2 kg Last Vital Signs Temp 98.6 F 03/14/20 08:56 Pulse 46 L 03/14/20 08:56 Resp 20 03/14/20 08:56 BP 124/69 03/14/20 08:56 Pulse Ox 100 03/14/20 08:56 Allergies Allergy/AdvReac Type Severity Reaction Status Date / Time No Known Allergies Allergy Verified 03/10/20 15:13 Home Medications Medication Instructions Recorded Confirmed Type dicyclomine 20 mg PO TID 03/10/20 03/10/20 History meclizine 25 mg PO TID PRN 03/10/20 03/10/20 History metronidazole 500 mg PO BID 03/10/20 03/10/20 History ondansetron HCl 4 mg PO BID 03/10/20 03/10/20 History Laboratory Tests 03/14/20 03/14/20 03/14/20 01:02 05:20 05:20 WBC 6.9 K/mm3 K/mm3 (4.5-10.0) RBC 3.98 M/mm3 L M/mm3 (4.2-5.4) Hgb 11.9 g/dL L g/dL (12.0-15.0) Hct 36.1 % L % (37.0-47.0) MCV 90.7 fl fl (80-100) MCH 29.9 pg pg (26-34) MCHC 33.0 g/dl g/dl (32-36) RDW 11.9 % % (11.5-14.5) Plt Count 191 k/mm3 k/mm3 (150-375) MPV 10.6 fl H fl (7.4-10.4) Immature Gran % (Auto) 0.6 % H % (0-0.5) Neut % (Auto) 56.1 % % (45.5-73.1) Lymph % (Auto) 32.7 % % (18.3-44.2) [place] % (Auto) 7.7 % % (2.6-8.5) Eos % (Auto) 2.3 % % (0-4.4) Baso % (Auto) 0.6 % % (0.2-1.2) Lymph # (Auto) 2.24 K/mm3 K/mm3 (0.9-3.2) [place] # (Auto) 0.5 K/mm3 K/mm3 (0.1-0.6) Eos # (Auto) 0.2 K/mm3 K/mm3 (0-0.3) Baso # (Auto) 0.0 K/mm3 K/mm3 (0.0-0.1) Abs Immat Gran (auto) 0.04 K/mm3 H K/mm3 (0.00-0.031) Absolute Neuts (auto) 3.9 K/mm3 K/mm3 (1.3-6.7) Absolute Nucleated RBC 0.0 K/mm3 K/mm3 (0.0-0.012) Nucleated RBC % 0.0 % % (0.0-0.2) ESR 15 mm/hr mm/hr (0-20) Sodium 136 mmol/L L mmol/L (137-145) Potassium 3.3 mmol/L L mmol/L (3.4-5.0) Chloride 106 mmol/L mmol/L (98-107) Carbon Dioxide 25 mmol/L mmol/L (22-30) Anion Gap 5 mmol/L L mmol/L (8-16) BUN 8 mg/dL mg/dL (7-17) Creatinine 0.80 mg/dL mg/dL (0.7-1.0) Estim Creat Clear Calc 83 ml/min ml/min Estimated GFR > 60 (59 - ) Glucose 101 mg/dL mg/dL (65-105) POC Capillary Glucose 107 mg/dl mg/dl (65-105) Calcium 9.0 mg/dL mg/dL (8.4-10.2) C-Reactive Protein < 0.5 mg/dL mg/dL (<1.0) Vitamin B12 Pending Folate 13.6 ng/mL ng/mL (2.76->20) 03/14/20 05:46 WBC RBC Hgb Hct MCV MCH MCHC RDW Plt Count MPV Immature Gran % (Auto) Neut % (Auto) Lymph % (Auto) [place] % (Auto) Eos % (Auto) Baso % (Auto) Lymph # (Auto) [place] # (Auto) Eos # (Auto) Baso # (Auto) Abs Immat Gran (auto) Absolute Neuts (auto) Absolute Nucleated RBC Nucleated RBC % ESR Sodium Potassium Chloride Carbon Dioxide Anion Gap BUN Creatinine Estim Creat Clear Calc Estimated GFR Glucose POC Capillary Glucose 96 mg/dl mg/dl (65-105) Calcium C-Reactive Protein Vitamin B12 Folate Patient hx anesthesia problems: none Family hx anesthesia problems: none [facility] Past Medical History Medical History (Updated 03/13/20 @ 12:51 by Suzanne Kelley PA-C) Abdominal pain Bilirubinemia No significant past medical history
--- NOTE | 2020-03-14 10:32 | PM.IMPN ---
Progress Note: A&P Assessment and Plan (1) Colitis: Code(s): K52.9 - Noninfective gastroenteritis and colitis, unspecified Status: Acute Assessment and Plan: CT from [facility] demonstrated pancolitis. Differential includes infectious vs inflammatory etiology. The pt denies any chronic abdominal pain, mucous stools, bloody stools or evidence of history of prior inflammatory bowel symptoms, history of Crohn's, IBS or colitis. CRP and ESR are normal so IBD is felt less likely. Clinical presentation suggests acute infectious colitis. Stool cultures were ordered but could not be performed because she did not have any further bowel movements. She reports one episode of diarrhea yesterday. Repeat stool cultures were ordered and are pending. Continue empiric IV zosyn. GI was consulted and input is appreciated. She underwent EGD today given epigastric pain, nausea, and vomiting and EGD was unremarkable. Continue supportive care and advance diet as tolerated. Appreciate continued GI input. (2) Lactic acidosis: Code(s): E87.2 - Acidosis Status: Resolved Assessment and Plan: Lactic acidosis was present on arrival and may have been secondary to acute dehydration versus colitis. Lactic acidosis and leukocytosis have resolved. She remains on treatment for colitis. (3) Hypokalemia: Code(s): E87.6 - Hypokalemia Status: Acute Assessment and Plan: Potassium is 3.3 today. Give 40mEq of PO potassium and repeat BMP tomorrow. (4) Dehydration: Code(s): E86.0 - Dehydration Status: Acute Assessment and Plan: Appears better hydrated after IV fluids since arrival. Continue IV fluids with D5/0.9% saline since PO intake is poor. (5) Intractable nausea and vomiting: Code(s): R11.2 - Nausea with vomiting, unspecified Status: Acute Assessment and Plan: Pt reported nausea and vomiting. She was NPO since midnight for EGD. She reports no further episodes today. Continue IV Pepcid, Zofran and p.r.n. Phenergan 25 mg IM q 4 hours for intractable symptoms. I have encouraged her to try to advance diet as tolerated. Appreciate GI input. (6) Bilirubinemia: Code(s): E80.6 - Other disorders of bilirubin metabolism Status: Acute Assessment and Plan: Total and indirect bilirubin are elevated suggesting Gilbert's syndrome. Direct bilirubin is 0. Appreciate GI input. (7) Abnormal urinalysis: Code(s): R82.90 - Unspecified abnormal findings in urine Status: Acute Assessment and Plan: Urine culture demonstrated Group B strep. She is asymptomatic. Zosyn will be continued for empiric treatment of colitis. (8) Hypoglycemia: Code(s): E16.2 - Hypoglycemia, unspecified Status: Acute Assessment and Plan: She reported tingling in her hands and feet with lightheadedness. Blood sugar was low at 76. Symptoms resolved with correction of hypoglycemia. Folate, vitamin B12, and vitamin D were sufficient. Subjective Date/time seen: 03/14/20 10:32 Mrs. Amaya is a 35 y.o. female who is seen in follow-up for pancolitis. She reports that she is feeling better today. She notes mild drowsiness as she just returned from EGD. She notes a migraine overnight which has resolved. She reports nausea and dry heaves yesterday but no further nausea or vomiting today. She would like to try to advance her diet today. She denies chest pain, dyspnea, cough. She denies abdominal pain. She reports loose stool. She denies subjective fever and chills. She denies dizziness, lightheadedness, and headache. She reports that her numbness/tingling resolved with correction of hypoglycemia and has not recurred. Review of Systems Review of Systems: All systems reviewed & are unremarkable except as noted in HPI and below Exam Narrative: Exam Narrative: General: Very pleasant, well-developed, thin 35 y.
[2020-03-14] MEDS: ENOXAPARIN 40 MG/0.4 ML SYRINGE SUB-Q (11:19)
--- NOTE | 2020-03-14 11:52 | PC.NURSE ---
1028 pt returned from GI lab alert , no distress, with no iv access , hospital iv nurse notified, she will come to start new iv pt is a difficult stick.
[2020-03-14 12:32] LABS: Glucose Point of Care 78 (65-105)
[2020-03-14] MEDS: POTASSIUM CHLORIDE 20 MEQ TABLET 40 MEQ PO (13:32)
[2020-03-14] MEDS: FAMOTIDINE 20 MG/2 ML VIAL IV PUSH ×2 (13:32→20:43)
--- NOTE | 2020-03-14 15:22 | PC.NURSE ---
1300 witnessed pt leaning over waste can trying to throw up , saliva was all that was witnessed , pt stated it was her few bites of food , no food noted in waste can. pt was able to dissolve potassium pills in sprite and drink them and kept them down, after explaining it would have to be given iv and could burn and possibly risk the new iv she had received today.
--- NOTE | 2020-03-14 18:52 | PC.NURSE ---
1850 pt c/o headache and requesting something for it , also iv is a 24 g and has started beeping, rate is 75 so turned down to 50 and called jessica to inform of iv difficulty it is patent but tolerating the rate of 75 and requested po med for headache, message left.
[2020-03-15 06:00] VITALS: BP 98/53; PULSE 49; RESP 20; TEMP 36.6; O2SAT 100
[2020-03-15 06:04] LABS: Hemoglobin 12.2 g/dL (12.0-15.0); Mean Corpuscular Hemoglobin 30.1 pg (26-34); Mean Corpuscular Volume 91.4 fl (80-100); Mean Platelet Volume 10.6 fl (7.4-10.4); Platelet Count Result 191 k/mm3 (150-375); Red Blood Count 4.05 M/mm3 (4.2-5.4); Red Cell Distribution Width 12.3 % (11.5-14.5)
[2020-03-15 06:20] LABS: Anion Gap 7 mmol/L (8-16); Blood Urea Nitrogen 7 mg/dL (7-17); Carbon Dioxide 24 mmol/L (22-30); Chloride 106 mmol/L (98-107); Estimated CRCL calculation 83 ml/min; Estimated Glomerular Filt Rate > 60; Glucose 93 mg/dL (65-105); Potassium 3.5 mmol/L (3.4-5.0); Sodium 137 mmol/L (137-145)
--- NOTE | 2020-03-15 07:26 | WPDANESPN ---
Anes - Prog Note Post-Op Date/Time: 03/15/20 07:26 Cardiovascular status: normal Respiratory status: normal Airway patency: baseline Mental status: baseline Post-Op hydration status: normal Vital Signs: Last Vital Signs Temp 36.6 C 03/15/20 06:00 Pulse 49 L 03/15/20 06:00 Resp 20 03/15/20 06:00 BP 98/53 L 03/15/20 06:00 Pulse Ox 100 03/15/20 06:00 Pain Score (VAS): 1 I/O: Intake & Output 03/14/20 03/14/20 03/15/20 15:59 23:59 07:59 Intake Total 540 680 250 Output Total 100 Balance 540 580 250 Laboratory Tests 03/15/20 05:46 03/15/20 05:46 03/14/20 03/14/20 03/14/20 05:20 05:46 12:29 WBC RBC Hgb Hct MCV MCH MCHC RDW Plt Count MPV Sodium Potassium Chloride Carbon Dioxide Anion Gap BUN Creatinine Estim Creat Clear Calc Estimated GFR Glucose POC Capillary Glucose 96 78 Calcium Vitamin B12 530.0 Folate 13.6 03/15/20 03/15/20 05:46 05:46 WBC 8.0 RBC 4.05 L Hgb 12.2 Hct 37.0 MCV 91.4 MCH 30.1 MCHC 33.0 RDW 12.3 Plt Count 191 MPV 10.6 H Sodium 137 Potassium 3.5 Chloride 106 Carbon Dioxide 24 Anion Gap 7 L BUN 7 Creatinine 0.80 Estim Creat Clear Calc 83 Estimated GFR > 60 Glucose 93 POC Capillary Glucose Calcium 9.0 Vitamin B12 Folate Microbiology 03/12/20 17:03 Stool Stool for WBCs - Final 03/12/20 12:54 Stool Clostridioides difficile Toxin Assay - Final Patient Feedback: Patient satisfied with anesthetic care.
[2020-03-15] MEDS: ONDANSETRON INJ 4 MG/2 ML VIAL IV PUSH (08:44)
[2020-03-15] MEDS: FAMOTIDINE 20 MG/2 ML VIAL IV PUSH (08:44)
[2020-03-15] MEDS: ENOXAPARIN 40 MG/0.4 ML SYRINGE SUB-Q (08:47)
--- NOTE | 2020-03-15 11:30 | WPDGIPROGNO ---
Progress Note: A&P Assessment and Plan (1) Intractable nausea and vomiting: Code(s): R11.2 - Nausea with vomiting, unspecified Status: Acute Assessment and Plan: still with n/v, encourage to eat but still sick egd normal, pending biopsies will schedule zofran instead of prn and add elavil at bedtime probably from pancolitis (found CT scan at another hospital) normal esr, also liver enzymes and lipase (2) Colitis: Code(s): K52.9 - Noninfective gastroenteritis and colitis, unspecified Status: Acute Assessment and Plan: she is on abx, stool samples pending wbc stool and c diff negative (3) Dehydration: Code(s): E86.0 - Dehydration Status: Acute (4) Abdominal pain: Code(s): R10.9 - Unspecified abdominal pain Status: Acute Assessment and Plan: resolved but still nauseous, wbc and lactic acid normal now. Subjective Date/time seen: 03/15/20 11:30 Interval history: still with nausea, she says that less diarrhea. No more pain though. EGD was normal yesterday. Review of Systems Review of Systems: All systems reviewed & are unremarkable except as noted in HPI and below Exam Const: General: comfortable and no acute distress HENMT: General nose exam: Normal nares present Eyes: General: appearance normal, both eyes and all related structures Neck: Neck: no JVD Resp: Auscultation: clear to auscultation bilaterally Cardio: Rate: regular rate Rhythm: regular rhythm GI: Inspection: non-distended GI Palp: Yes Soft to palpation Skin: General skin exam: normal color Neuro: General: gait normal Speech: normal speech Extrem: General: normal to inspection Psych: Mental Status: mental status grossly normal Objective Data Vital Signs Vital Signs: Vital Signs - 24 hr 03/14/20 14:00 03/14/20 20:18 03/14/20 22:00 Temperature 99.5 F 97.9 F 98.9 F Pulse Rate 49 L 46 L 54 L Respiratory Rate 16 20 Blood Pressure 118/75 144/72 H 136/50 L Pulse Oximetry 100 100 100 03/15/20 06:00 Temperature 97.8 F Pulse Rate 49 L Respiratory Rate 20 Blood Pressure 98/53 L Pulse Oximetry 100 Intake/Output Intake/Output: Intake & Output 09/03/13/20 03/14/20 03/15/20 23:59 23:59 23:59 23:59 Intake Total 3410 1391 2420 300 Output Total 1700 1000 800 Balance 0714 773 6107 300 Meds/Results Medications: Active Medications Generic Name Dose Route Start Last Admin Trade Name Freq PRN Reason Stop Dose Admin Acetaminophen 650 mg 03/15/20 11:22 Tylenol Tablet PO Q6H PRN Mild Pain (1-3) or Fever Amitriptyline HCl 25 mg 03/15/20 21:00 Elavil PO HS NUHA Dextrose 12.5 gm 03/13/20 12:31 Dextrose 50% Syringe IV PUSH PRN PRN Hypoglycemia Protocol Dicyclomine HCl 20 mg 03/15/20 13:00 Bentyl Capsule PO TID NUHA Enoxaparin Sodium 40 mg 03/11/20 09:00 03/15/20 08:47 Lovenox SUB-Q 40 mg DAILY NUHA Administration Glucagon 1 mg 03/13/20 12:31 Glucagon For Inj IM PRN PRN Hypoglycemia Protocol Glucose 15 gm 03/13/20 12:31 Glutose 15 PO PRN PRN Hypoglycemia Protocol Piperacillin/Tazobactam/Dextrose 3.375 gm in 50 mls @ 100 mls/hr 03/11/20 00:00 03/15/20 10:25 Zosyn 3.375 Gm/D5w 50ml Pm IVPB Infused Q6H NUHA Infusion Dextrose 1,000 mls @ 100 mls/hr 03/13/20 12:31 Dextrose 5% 1,000 Ml IVPB PRN PRN Hypoglycemia Protocol Dextrose/Sodium Chloride 1,000 mls @ 75 mls/hr 03/13/20 12:45 03/14/20 04:12 Dextrose 5% Sodium Chloride 0.9% IV CONT 75 mls/hr .[id number] NUHA Administration Meclizine HCl 25 mg 03/15/20 11:21 Antivert PO TID PRN dizziness Ondansetron HCl 4 mg 03/15/20 13:00 Zofran Inj IV PUSH Q4HR NUHA Pantoprazole Sodium 40 mg 03/16/20 09:00 Protonix PO QAM [facility] Labs Labs: Laboratory Results - last 24 hr 03/14/20 03/15/20 03/15/20 12:29 05:46
[2020-03-15 14:00] VITALS: BP 105/66; PULSE 51; RESP 14; TEMP 37.3; O2SAT 100
--- NOTE | 2020-03-15 14:43 | PM.IMPN ---
Progress Note: A&P Assessment and Plan (1) Colitis: Code(s): K52.9 - Noninfective gastroenteritis and colitis, unspecified Status: Acute Assessment and Plan: CT from [facility] demonstrated pancolitis. Differential includes infectious vs inflammatory etiology. The pt denies any chronic abdominal pain, mucous stools, bloody stools or evidence of history of prior inflammatory bowel symptoms, history of Crohn's, IBS or colitis. CRP and ESR are normal so IBD is felt less likely. Clinical presentation suggests acute infectious colitis. Stool cultures were repeated as the prior specimen was not fully resulted. C. diff is negative. Giardia and cryptosporidium are negative. Shiga toxins, campylobacter, and salmonella/shigella are pending. WBC smear is negative. Diarrhea has resolved. GI is following. She underwent EGD 03/14 given epigastric pain, nausea, and vomiting and EGD was unremarkable. Continue supportive care and advance diet as tolerated. Appreciate continued GI input. Discussed with GI and will stop IV zosyn as this may be contributing to her nausea/vomiting. Colitis has been adequately treated and stool study negative for WBCs. (2) Intractable nausea and vomiting: Code(s): R11.2 - Nausea with vomiting, unspecified Status: Acute Assessment and Plan: Pt reports nausea and vomiting. Will stop pepcid and begin PO protonix. Discussed with GI and will start amitriptyline at bedtime and schedule zofran. I have also resumed her bentyl. Stop IV zosyn as this may be contributing to N/V. Appreciate GI input. (3) Lactic acidosis: Code(s): E87.2 - Acidosis Status: Resolved Assessment and Plan: Resolved. Lactic acidosis was present on arrival and may have been secondary to acute dehydration versus colitis. Lactic acidosis and leukocytosis have resolved. She remains on treatment for colitis. (4) Hypokalemia: Code(s): E87.6 - Hypokalemia Status: Resolved Assessment and Plan: Potassium is sufficient. (5) Dehydration: Code(s): E86.0 - Dehydration Status: Acute Assessment and Plan: Appears better hydrated after IV fluids since arrival. Continue IV fluids with D5/0.9% saline since PO intake is poor. (6) Bilirubinemia: Code(s): E80.6 - Other disorders of bilirubin metabolism Status: Acute Assessment and Plan: Total and indirect bilirubin are elevated suggesting Gilbert's syndrome. Direct bilirubin is 0. Appreciate GI input. (7) Abnormal urinalysis: Code(s): R82.90 - Unspecified abnormal findings in urine Status: Acute Assessment and Plan: Urine culture demonstrated Group B strep. She is asymptomatic. Zosyn will be continued for empiric treatment of colitis. (8) Hypoglycemia: Code(s): E16.2 - Hypoglycemia, unspecified Status: Acute Assessment and Plan: Resolved. She reported tingling in her hands and feet with lightheadedness. Blood sugar was low at 76. Symptoms resolved with correction of hypoglycemia. Folate, vitamin B12, and vitamin D were sufficient. Subjective Date/time seen: 03/15/20 14:43 Mrs. Amaya is a 35 y.o. female who is seen in follow-up for pancolitis. The patient reports that she was feeling better yesterday but states that she had nausea and vomiting today after water and crackers. I looked in the emesis bag and all that was in it was clear fluid which looked like saliva. EGD was unremarkable. She has no abdominal pain or distention. She had a migraine last night but no further headaches today. She denies subjective fever and chills. She reports formed bowel movements and is not having any further diarrhea. She has no urinary complaints. Review of Systems Review of Systems: All systems reviewed & are unremarkable except as noted in HPI and below Exam Narrative: Exam Narrative: General: Pleasant, well-d
[2020-03-15 16:13] LABS: Lipase 150 U/L (23-300)
[2020-03-15 22:00] VITALS: BP 100/62; PULSE 56; RESP 20; TEMP 36.6; O2SAT 97
[2020-03-16 05:57] VITALS: BP 105/40; PULSE 55; RESP 20; TEMP 37; O2SAT 100
[2020-03-16 06:22] LABS: Basophils Percent Auto 0.3 % (0.2-1.2); Eosinophils Absolute Auto 0.3 K/mm3 (0-0.3); Eosinophils Percent Auto 2.9 % (0-4.4); Hematocrit 37.7 % (37.0-47.0); Hemoglobin 12.3 g/dL (12.0-15.0); Immature Granulocyte Absolute 0.05 K/mm3 (0.00-0.031); Immature Granulocyte Percent A 0.6 % (0-0.5); Lymphocytes Absolute Auto 2.58 K/mm3 (0.9-3.2); Lymphocytes Percent Auto 29.6 % (18.3-44.2); Mean Corpuscular HGB Conc 32.6 g/dl (32-36); Mean Corpuscular Hemoglobin 29.8 pg (26-34); Mean Corpuscular Volume 91.3 fl (80-100); Mean Platelet Volume 10.4 fl (7.4-10.4); Monocytes Absolute Auto 0.7 K/mm3 (0.1-0.6); Monocytes Percent Auto 7.7 % (2.6-8.5); Neutrophils Absolute Auto 5.2 K/mm3 (1.3-6.7); Neutrophils Percent Auto 58.9 % (45.5-73.1); Platelet Count Result 221 k/mm3 (150-375); Red Blood Count 4.13 M/mm3 (4.2-5.4); Red Cell Distribution Width 12.2 % (11.5-14.5); White Blood Count 8.7 K/mm3 (4.5-10.0)
[2020-03-16 06:42] LABS: Alanine Aminotransferase 27 U/L (4-35); Albumin Level 4.5 g/dL (3.5-5.1); Alkaline Phosphatase 49 U/L (38-126); Anion Gap 10 mmol/L (8-16); Aspartate Amino Transferase 33 U/L (14-36); Bilirubin,Total 1.9 mg/dL (0.2-1.3); Blood Urea Nitrogen 12 mg/dL (7-17); Calcium 9.5 mg/dL (8.4-10.2); Carbon Dioxide 23 mmol/L (22-30); Chloride 103 mmol/L (98-107); Estimated CRCL calculation 93 ml/min; Estimated Glomerular Filt Rate > 60; Glucose 75 mg/dL (65-105); Magnesium 2.2 mg/dL (1.6-2.3); Potassium 3.4 mmol/L (3.4-5.0); Sodium 136 mmol/L (137-145)
--- NOTE | 2020-03-16 12:18 | PM.DS ---
DS: Admitting Diagnosis Admitting Diagnosis Admitting Diagnosis: Nausea vomiting and diarrhea with abdominal pain DS: Discharge Diagnosis Discharge Diagnosis (1) Colitis: Code(s): K52.9 - Noninfective gastroenteritis and colitis, unspecified Status: Acute Assessment and Plan: Discharge Summary (Date of service 03/16/20): Mrs. Amaya is a 35 y.o. female with no significant past medical history who presented to the emergency department for the evaluation of intractable nausea, vomiting, and diarrhea. She was recently diagnosed with pancolitis at [facility] and treated with flagyl, meclizine, dicyclomine, and zofran. She reported persistent nausea so she presented to our emergency department for further evaluation. CT from [facility] demonstrated pancolitis. She was admitted to the hospitalist service and GI was consulted. The pt denied any chronic abdominal pain, mucous stools, bloody stools or evidence of history of prior inflammatory bowel symptoms, history of Crohn's, IBS or colitis. CRP and ESR were normal so IBD was felt less likely. Clinical presentation suggested acute infectious colitis. Stool cultures were ordered. C. diff, shiga-toxins E. coli 0157, salmonella/shigella, cryptosporidium, and giardia were negative. Campylobacter is still pending. WBC smear was negative. Diarrhea improved. She underwent EGD 03/14 given epigastric pain, nausea, and vomiting and EGD was unremarkable. Supportive care was continued. IV zosyn was discontinued 03/15/20 due to concern that it may be causing nausea and vomiting. She reported significant improvement once zosyn was discontinued. She was tolerating PO intake and her lunch with no further nausea or vomiting. She requested to go home as she felt much better. She was discharged in stable condition on the afternoon of 03/16/20. (2) Intractable nausea and vomiting: Code(s): R11.2 - Nausea with vomiting, unspecified Status: Acute Assessment and Plan: Pt reported nausea and vomiting. GI recommended amitriptyline at bedtime and schedule zofran. IV zosyn was discontinued. She refused all medications and reported that she felt much better today. She was able to tolerate PO intake and thinks the zosyn may have contributed to her nausea and vomiting. (3) Lactic acidosis: Code(s): E87.2 - Acidosis Status: Resolved Assessment and Plan: Resolved. Lactic acidosis was present on arrival and likely secondary to acute dehydration versus colitis. Lactic acidosis and leukocytosis resolved. She remains on treatment for colitis. (4) Hypokalemia: Code(s): E87.6 - Hypokalemia Status: Resolved Assessment and Plan: Potassium was low initially. Potassium was replaced and sufficient. (5) Dehydration: Code(s): E86.0 - Dehydration Status: Resolved Assessment and Plan: Resolved. She was tolerating PO intake well the day of discharge. (6) Bilirubinemia: Code(s): E80.6 - Other disorders of bilirubin metabolism Status: Acute Assessment and Plan: Total and indirect bilirubin were elevated suggesting Gilbert's syndrome. (7) Abnormal urinalysis: Code(s): R82.90 - Unspecified abnormal findings in urine Status: Acute Assessment and Plan: Urine culture demonstrated Group B strep. She remained asymptomatic. She was treated with zosyn for colitis. (8) Hypoglycemia: Code(s): E16.2 - Hypoglycemia, unspecified Status: Resolved Assessment and Plan: Resolved. She reported tingling in her hands and feet with lightheadedness. Blood sugar was low at 76. Symptoms resolved with correction of hypoglycemia. Folate, vitamin B12, and vitamin D were sufficient. DS: Summary Hospital Course Reason for hospitalization: Nausea, vomiting, and diarrhea Hospital Course: As above. Status at Discharge Functional
[2020-03-26 14:24] LABS: Glucose Point of Care 76 (65-105)
== END 2020-03-16 13:35 | disposition home or self-care (01) | DRG 241 ==
LOC: ANHED 18:55 → ANH3MEDSUR 19:03
PROVIDERS: Emergency Medicine Emergency Medical Services; Internal Medicine; Internal Medicine Gastroenterology; Physician Assistant; Admitting Provider Internal Medicine; Emergency Provider Emergency Medicine; PCP Family Medicine; Visit Provider Internal Medicine
PROC: 0DJ08ZZ Inspection of Upper Intestinal Tract, Via Natural or Artificial Opening Endoscopic (ICD-10-PCS; CPT 43235; principal; 2020-03-14 09:30)
DX: K29.70 Gastritis, unspecified, without bleeding (principal); K52.9 Noninfective gastroenteritis and colitis, unspecified; E87.2 Acidosis; E87.6 Hypokalemia; E86.0 Dehydration; E80.6 Other disorders of bilirubin metabolism; R82.90 Unspecified abnormal findings in urine; B95.1 Streptococcus, group B, as the cause of diseases classified elsewhere; E16.2 Hypoglycemia, unspecified; Z79.899 Other long term (current) drug therapy
CPT/HCPCS: 36415; 80048; 80053; 81001; 82248; 82607; 82746; 83605; 83690; 83735; 84132; 85025; 85027; 85610; 85652; 85730; 86140; 87015; 87040; 87045; 87046; 87077; 87086; 87088; 87177; 87209; 87269; 87272; 87324; 87427; 88305; 89055; 96361; 96365; 96366; 96367; 96372; 96375; 96376; 99285; A9270; G0378; G0379; J0131; J0696; J1650; J2060; J2405; J2543; J2550; J2704; J2765; J3480; J7042; J7120